=== PATIENT | male | born 1940 | race Caucasian/White ===

== ENCOUNTER 2017-04-17 23:23 | Emergency (ER) | payer MEDICARE ==
[2017-04-17 23:30] VITALS: BP 147/80; PULSE 58; RESP 18; TEMP 98
[2017-04-17] MEDS ORDERED: DIPH,PERTUS(ACELL)TETVAC-LF 0.5 ML VIAL IM ONE (23:36)
--- NOTE | 2017-04-17 23:42 | ED ---
General Adult HPI - General Chief complaint: Animal Bite Stated complaint: dog bite Time Seen by Provider: 04/17/17 23:32 Source: patient, family, RN notes reviewed Mode of arrival: ambulatory Limitations: no limitations - History of Present Illness Initial comments: Chief complaint history of present illness a 76-year-old male here with his . The patient owns dogs into the daughters got into a fight. He broke it up. He received a bite on the volar surface of his thumb which she refuses to get sutured. He also has a laceration measuring approximately 1/2 cm on the dorsal surface of his left hand. He will allow that to be sutured. Patient's x -rays full range of motion, no complaint of any numbness or tingling. The patient's to receive updated tetanus. - Related Data Home Medications Medication Instructions Recorded Confirmed Montelukast Sodium [Singulair] 10 mg PO DAILY 04/17/17 04/17/17 Simvastatin [Zocor] 20 mg PO DAILY 04/17/17 04/17/17 Previous Rx's Medication Instructions Recorded Amoxicillin/Potassium Clav 1 each PO Q12HR #16 tab 04/17/17 [Augmentin 875-125 Tablet] Allergies Allergy/AdvReac Type Severity Reaction Status Date / Time No Known Allergies Allergy Verified 04/17/17 23:30 Review of Systems ROS Statement: Those systems with pertinent positive or pertinent negative responses have been documented in the HPI. Review of systems patient has no other complaints other than the injuries caused by a dog bite to his right thumb and left hand. Past medical problems include having had surgery on his left eye, left shoulder. No known ALLERGIES. ROS Other: All systems not noted in ROS Statement are negative. Past Medical History Past Medical History: No Reported History History of Any Multi-Drug Resistant Organisms: None Reported Past Surgical History: Joint Replacement, Orthopedic Surgery Additional Past Surgical History / Comment(s): lt shoulder,lt eye Smoking Status: Never smoker Past Alcohol Use History: Occasional Past Drug Use History: None Reported General Exam - General Exam Comments Initial Comments: General: The patient is awake and alert, here for evaluation for dog bite to both hands. Also need a tetanus shot. Vital signs shows temperature 98.0 pulse 50 her story rate 18 pulse ox 97% room air blood pressure 147/80 Musculoskeletal: Normal range of motion to both hands and wrists elbows. He does have a 1 cm laceration on the volar surface of his right thumb which she will refuses to be sutured but it was cleaned. It will be dressed. He does have a laceration of the dorsal surface of his left hand which she will allow to be sutured. Neurological: No neuro deficits. Limitations: no limitations Course Vital Signs 04/17/17 23:27 Temperature 98.0 F Pulse Rate 58 L Respiratory 18 Rate Blood Pressure 147/80 O2 Sat by Pulse 97 Oximetry Medical Decision Making - Medical Decision Making Patient was advised they still need to fill out a dog bite form even though the dogs belong to them. They report the dogs immunizations are all up-to-date. Disposition Clinical Impression: Dog bite Disposition: HOME SELF-CARE Condition: Stable Instructions: Animal Bite (ED) Additional Instructions: Clean all wounds including abrasions daily. Take Augmentin 875 twice a day for 1 week. Sutures out in 8 days. Report any signs of infection. Prescriptions: Amoxicillin/Potassium Clav [Augmentin 875-125 Tablet] 1 each PO Q12HR #16 tab Referrals: Luis Daniel Tejada MD [Primary Care Provider] - 1-2 days Time of Disposition: 23:41
[2017-04-17] MEDS ORDERED: AMOXIC-POT CLAV 875MG STARTER 2 EACH TABLET PO STA (23:44)
== END 2017-04-18 00:11 | disposition home or self-care (01) ==
LOC: EC 23:23
DX: S61.412A Laceration without foreign body of left hand, initial encounter (principal); S61.051A Open bite of right thumb without damage to nail, initial encounter; Z79.899 Other long term (current) drug therapy; Z23 Encounter for immunization; W54.0XXA Bitten by dog, initial encounter; Y93.89 Activity, other specified
CPT/HCPCS: 12001; 90471; 90715; 99283

== ENCOUNTER → 2020-08-13 | Outpatient (CLI) | payer MEDICARE ==
--- NOTE | 2020-08-13 16:10 | US ---
EXAMINATION TYPE: US kidneys/renal and bladder DATE OF EXAM: 08/13/2020 COMPARISON: NONE CLINICAL HISTORY: N18.9 chronic kidney disease. EXAM MEASUREMENTS: Right Kidney: 9.3 x 3.7 x 4.2 cm Left Kidney: 10.6 x 5.3 x 4.5 cm Right Kidney: No hydronephrosis or masses seen Left Kidney: not well visualized, 2.6cm soft tissue density mass vs normal parenchyma Bladder: non-distended, possible slight wall thickening vs non-distended bladder There is no evidence for hydronephrosis at this point in time. No nephrolithiasis is seen. The urin danika bladder is anechoic. Bilateral ureteral jets are seen. IMPRESSION: Masslike fullness lower pole left kidney. Consider CT for further evaluation.
== END | disposition home or self-care (01) ==
LOC: RADUSWWP 15:32
PROVIDERS: ATTEND Internal Medicine
DX: N18.9 Chronic kidney disease, unspecified (principal)
CPT/HCPCS: 76770

== ENCOUNTER → 2020-08-22 | Outpatient (CLI) | payer MEDICARE ==
--- NOTE | 2020-08-24 16:50 | CT ---
EXAMINATION TYPE: CT urogram wo/w con DATE OF EXAM: 08/22/2020 COMPARISON: Ultrasound 08/13/2020 HISTORY: 79-year-old male Left renal mass. TECHNIQUE: Contiguous axial scanning of the abdomen and pelvis performed with IV Contrast, patient in jected with 80 mL of Isovue 300. Delayed images through the kidneys and bladder were obtained. Goss l/sagittal reconstructions performed. 3-D reconstructions generated on a dedicated independent workst atDasdak. CT DLP: 1072.3 mGycm Automated exposure control for dose reduction was used. FINDINGS: The heart is normal size without pericardial effusion. Mild dependent atelectasis at the visualized l tunde bases without pleural effusion. A couple subcentimeter hypodensities anterior left liver lobe too small for accurate CT characterizat ion, likely tiny cysts. Portal venous system is patent. No biliary ductal dilatation. Gallbladder, right adrenal gland, and spleen appear within normal limits. 2.2 cm nodule within the left adrenal gland is nonspecific. Noncontrast attenuation is not compatible with a lipid rich adrenal adenoma. Suspect a collapsed diverticulum of the third portion of the duodenum projecting superiorly into the pancreatic head region. Punctate calcification body of the pancreas is nonspecific. Otherwise, the pa ncreas shows no gross abnormality. No nephrolithiasis or hydronephrosis. No suspicious renal mass is identified. A subcentimeter, 7 mm h ypodensity lateral cortex of the right kidney is too small for acute CT catheterization, likely a tin y cyst. The left kidney is asymmetrically larger secondary to a duplex renal collecting system. Mild fullness of the left lower pole moiety but with symmetric uptake and excretion of contrast from both sides. N o suspicious filling defects within the renal collecting systems. The distal aspect of both ureters are nonopacified limiting their evaluation. 2 ureters are seen to t he mid ureteric level on the left. No dilated small bowel, free fluid, or free air. Overall paucity of intra-abdominal fat limits evalua tion for intra-abdominal lymphadenopathy. No obvious lymphadenopathy seen. Moderate stool burden. Assessment of pelvic structures is markedly limited due to extensive streak and beam hardening artifa ct relating to the patient's left hip total arthroplasty. Asymmetric soft tissue atrophy of the left psoas muscle. Bladder is inadequately assessed due to the extensive metal hardware artifacts. Tiny pelvic phlebolit hs. Prostate gland measures 5.1 cm wide. Some surgical material about the left hip. Bones: Left temporal arthroplasty. Surgical metal debris scattered within the left hip. Mild degenera tive change right hip. Advanced degenerative disc disease T11-L1. Hypertrophic facet arthropathy with trace grade 1 retrolisthesis T12-L1, L1-L2, and L2-L3. Trace grade 1 anterolisthesis L4-L5. There is a transitional lumbosacral segment with sacralized L5. Prominent disc bulging throughout the lumbar spine. IMPRESSION: 1. ASYMMETRICALLY LARGER LEFT KIDNEY SECONDARY TO A DUPLEX RENAL COLLECTING SYSTEM. THE QUESTIONED MA SS ON ULTRASOUND CORRESPONDS TO THE DUPLEX MORPHOLOGY OF THE KIDNEY. TWO URETERS ARE SEEN TO THE MID URETERIC LEVEL ON THE LEFT. 2. TINY 7 MM CORTICAL HYPODENSITY LATERAL MID POLE RIGHT KIDNEY TOO SMALL FOR ACCURATE CT CHARACTERIZ ATION, LIKELY TINY CYST. NO SUSPICIOUS RENAL LESION. 3. THE DISTAL URETERS ON BOTH SIDES ARE NONOPACIFIED LIMITING THEIR ASSESSMENT. ASSESSMENT OF THE PINO DDER IS ALSO MARKEDLY LIMITED DUE TO EXTENSIVE METAL ARTIFACT FROM THE PATIENT'S LEFT HIP REPLACEMENT . 4. A 2.2 CM LEFT ADRENAL NODULE DOES NOT MEET CRITERIA FOR A LIPID RICH ADRENAL ADENOMA. AN ADRENAL A DENOMA REMAINS THE STATISTICALLY MOST LIKELY CONSIDERATION. 6 MONTH FOLLOW-UP ADRENAL MASS PROTOCOL C Debby.
== END | disposition home or self-care (01) ==
LOC: RADCTMAIN 11:31
PROVIDERS: ATTEND Internal Medicine
DX: E27.8 Other specified disorders of adrenal gland (principal); N28.81 Hypertrophy of kidney; N28.89 Other specified disorders of kidney and ureter; Z96.642 Presence of left artificial hip joint
CPT/HCPCS: 82565; 84520; 74178; 36415; 74400; Q9967

== ENCOUNTER → 2020-10-09 | Outpatient (CLI) | payer MEDICARE ==
[2020-10-09 12:43] LABS: Creatinine,Urine Random 62.5 mg/dL; Protein/Creatinine Ratio,Urine 0.144
[2020-10-09 16:35] LABS: Appearance,Urine Clear (Clear); Bacteria,Urine None Seen /HPF (None Seen); Bilirubin,Urine Negative (Negative); Blood,Urine Negative (Negative); Color,Urine Yellow (Yellow); Glucose,Urine (UA) Negative (Negative); Ketones,Urine Negative (Negative); Leukocyte Esterase,Urine Negative (Negative); Nitrite,Urine Negative (Negative); PH, Urine 6.5 (4.5-8.0); Protein,Urine Negative (Negative); Specific Gravity,Urine 1.012 (1.001-1.030); Urobilinogen,Urine 0.2 E.U./DL (0.0-1.0)
[2020-10-09 20:17] LABS: Basophils # (A) 0.04 X 10*3/uL (0.00-0.10); Basophils % (A) 0.5 %; Eosinophils # (A) 0.12 X 10*3/uL (0.04-0.35); Eosinophils % (A) 1.6 %; HCT 39.7 % (39.6-50.0); HGB 12.7 g/dL (13.0-17.0); Lymphocytes # (A) 1.28 X 10*3/uL (0.90-5.00); Lymphocytes % (A) 17.2 %; MCH 28.4 pg (27.0-32.0); MCV 88.8 fL (80.0-97.0); Mean Platelet Volume 10.7 fL (9.5-12.2); Monocytes # (A) 0.66 X 10*3/uL (0.20-1.00); Monocytes % (A) 8.9 %; Neutrophils # (A) 5.33 X 10*3/uL (1.80-7.70); Neutrophils % (A) 71.5 %; Platelet Count 338 X 10*3/uL (140-440); RBC 4.47 X 10*6/uL (4.40-5.60); RDW 13.7 % (11.5-14.5); WBC 7.45 X 10*3/uL (4.50-10.00)
[2020-10-09 20:37] LABS: % Iron Saturation 32.12 (15.00-50.00); African American GFR (CKD) 44.1 (60.0-200.0); Albumin 4.5 g/dL (3.80-4.90); Anion Gap 8.6 mmol/L (4.00-12.00); BUN/Creat Ratio 15.29 Ratio (12.00-20.00); Calcium 9.5 mg/dL (8.7-10.3); Carbon Dioxide 28.4 mmol/L (21.6-31.8); Magnesium 2.1 mg/dL (1.5-2.4); Non-African American GFR(CKD) 38.1 (60.0-200.0); Phosphorus 3.3 mg/dL (2.4-5.1); Potassium 4.6 mmol/L (3.5-5.5); Uric Acid 6.7 mg/dL (3.7-8.7)
[2020-10-09 20:44] LABS: Ferritin 35.6 ng/mL (22.0-322.0)
== END | disposition home or self-care (01) ==
LOC: LABWHC1 11:46
PROVIDERS: ATTEND Internal Medicine Nephrology
DX: N18.32 Chronic kidney disease, stage 3b (principal); E55.9 Vitamin D deficiency, unspecified; N25.81 Secondary hyperparathyroidism of renal origin; M10.9 Gout, unspecified; N39.0 Urinary tract infection, site not specified; D64.9 Anemia, unspecified; R80.9 Proteinuria, unspecified
CPT/HCPCS: 36415; 80048; 81003; 82040; 82306; 82570; 82728; 83540; 83550; 83735; 83970; 84100; 84156; 84550; 85025

== ENCOUNTER → 2021-05-07 | Outpatient (CLI) | payer MEDICARE ==
[2021-05-07 14:06] LABS: Appearance,Urine Clear (Clear); Bilirubin,Urine Negative (Negative); Blood,Urine Negative (Negative); Color,Urine Yellow; Glucose,Urine (UA) Negative (Negative); Ketones,Urine Negative (Negative); Leukocyte Esterase,Urine Negative (Negative); Nitrite,Urine Negative (Negative); PH, Urine 6.5 (5.0-8.0); Protein,Urine Negative (Negative); Specific Gravity,Urine 1.014 (1.001-1.035); Urobilinogen,Urine <2.0 mg/dL (<2.0)
[2021-05-07 14:30] LABS: Creatinine,Urine Random 81.6 mg/dL; Protein/Creatinine Ratio,Urine 0.098
[2021-05-07 20:04] LABS: Basophils # (A) 0.04 X 10*3/uL (0.00-0.10); Basophils % (A) 0.7 %; Eosinophils # (A) 0.13 X 10*3/uL (0.04-0.35); Eosinophils % (A) 2.3 %; HCT 38.4 % (39.6-50.0); HGB 12.6 g/dL (13.0-17.0); Lymphocytes # (A) 1.54 X 10*3/uL (0.90-5.00); Lymphocytes % (A) 27.1 %; MCH 29.2 pg (27.0-32.0); MCHC 32.8 g/dL (32.0-37.0); MCV 88.9 fL (80.0-97.0); Mean Platelet Volume 10.9 fL (9.5-12.2); Monocytes # (A) 0.46 X 10*3/uL (0.20-1.00); Monocytes % (A) 8.1 %; Neutrophils # (A) 3.49 X 10*3/uL (1.80-7.70); Neutrophils % (A) 61.4 %; Platelet Count 291 X 10*3/uL (140-440); RBC 4.32 X 10*6/uL (4.40-5.60); RDW 14.1 % (11.5-14.5); WBC 5.68 X 10*3/uL (4.50-10.00)
[2021-05-08 09:58] LABS: % Iron Saturation 41.24 (15.00-50.00); African American GFR (CKD) 50.9 (60.0-200.0); Albumin 4.2 g/dL (3.80-4.90); Anion Gap 10.5 mmol/L (4.00-12.00); BUN/Creat Ratio 22.67 Ratio (12.00-20.00); Calcium 8.9 mg/dL (8.7-10.3); Carbon Dioxide 23.5 mmol/L (21.6-31.8); Phosphorus 3.2 mg/dL (2.4-5.1); Potassium 4.6 mmol/L (3.5-5.5); Uric Acid 6.7 mg/dL (3.7-8.7)
[2021-05-08 10:07] LABS: Ferritin 53.5 ng/mL (22.0-322.0)
== END | disposition home or self-care (01) ==
LOC: LABWHC1 12:57
PROVIDERS: ATTEND Nurse Practitioner Family
DX: N18.32 Chronic kidney disease, stage 3b (principal); E55.9 Vitamin D deficiency, unspecified; N25.81 Secondary hyperparathyroidism of renal origin; M10.9 Gout, unspecified; N39.0 Urinary tract infection, site not specified; D64.9 Anemia, unspecified; R80.9 Proteinuria, unspecified
CPT/HCPCS: 36415; 80048; 81003; 82040; 82306; 82570; 82728; 83540; 83550; 83735; 83970; 84100; 84156; 84550; 85025

== ENCOUNTER → 2021-06-04 | Outpatient (CLI) | payer MEDICARE ==
--- NOTE | 2021-06-04 13:18 | CT ---
EXAMINATION TYPE: CT abdomen wo con DATE OF EXAM: 06/04/2021 COMPARISON: CT 08/22/2020 HISTORY: adrenal adenoma CT DLP: 171.1 mGycm Automated exposure control for dose reduction was used. TECHNIQUE: Helical acquisition of images was performed from the lung bases through the top of iliac crest to include entire abdomen. CONTRAST: Performed with Oral Contrast and without IV contrast. FINDINGS: Lack of intravenous contrast could compromise sensitivity LUNG BASES: No significant abnormality is appreciated. LIVER/GB: No significant abnormality is appreciated. PANCREAS: No significant abnormality is seen. SPLEEN: No significant abnormality is seen. ADRENALS: No significant interval change is seen,e Hounsfield unit measurements of the left adrenal m ass are approximately 8-9, low densities in keeping with patient's history of adenoma. KIDNEYS: No significant abnormality is seen. BOWEL: No significant abnormality is seen. LYMPH NODES: No significant abnormality is appreciated. OSSEOUS STRUCTURES: Degenerative disc changes are present in the visualized spine, there is a spinal curvature, some associated facet arthropathy. FREE AIR: No Free Air visible ASCITES: None visible. RETROPERITONEAL ADENOPATHY: No Retroperitoneal Adenopathy visible. OTHER: Aorta shows atheromatous change. IMPRESSION: FINDINGS CONSISTENT WITH PATIENT'S HISTORY
== END | disposition home or self-care (01) ==
LOC: RADCTMAIN 10:51
PROVIDERS: ATTEND Internal Medicine Nephrology
DX: D35.02 Benign neoplasm of left adrenal gland (principal)
CPT/HCPCS: 74150

== ENCOUNTER → 2021-10-13 | Outpatient (CLI) | payer MEDICARE ==
--- NOTE | 2021-10-13 09:40 | US ---
EXAMINATION TYPE: US carotid duplex BILAT DATE OF EXAM: 10/13/2021 COMPARISON: NONE CLINICAL HISTORY: I34.0 mitral insufficiency nonrheumatic. EXAM MEASUREMENTS: RIGHT: Peak Systolic Velocity (PSV) cm/sec ----- Right CCA: 88.5 ----- Right ICA: 92.7 ----- Right ECA: 58.3 ICA/CCA ratio: 1.05 RIGHT: End Diastole cm/sec ----- Right CCA: 30.9 ----- Right ICA: 32.1 ----- Right ECA: 7.99 LEFT: Peak Systolic Velocity (PSV) cm/sec ----- Left CCA: 106 ----- Left ICA: 32.7 ----- Left ECA: 87.9 ICA/CCA ratio: 0.91 LEFT: End Diastole cm/sec ----- Left CCA: 26.7 ----- Left ICA: 32.7 ----- Left ECA: 15.4 VERTEBRALS (direction of flow): Right Vertebral: Antegrade Left Vertebral: Antegrade Rhythm: Arrhythmia No elevated velocities IMPRESSION: 1. Atheromatous plaquing including calcified plaque and intimal wall thickening diffusely without sig nificant flow-limiting stenosis by velocity measurement. Criteria for Assigning % of Stenosis / Diameter reduction (Estimation based on the indirect measurements of the internal carotid artery velocities (ICA PSV). 1. Normal (no stenosis)=ICA PSV < 125 cm/s: ratio < 2.0: ICA EDV<40 cm/s. 2. Less than 50% stenosis=ICA PSV < 125 cm/s: ratio < 2.0: ICA EDV<40 cm/s. 3. 50 to 69% stenosis=ICA PSV of 125 to 230 cm/s: ration 2.0 ? 4.0: ICA EDV 40-100 cm/s. 4. Greater than 70% stenosis to near occlusion= ICA PSV > 230 cm/s: ratio > 4.0: ICA EDV > 100 cm/s. 5. Near occlusion= ICA PSV velocities may be low or undetectable: variable ratio and ICA EDV. 6. Total occlusion=unable to detect flow.
--- NOTE | 2021-10-13 09:59 | CT ---
EXAMINATION TYPE: CT heart w calcium score DATE OF EXAM: 10/13/2021 COMPARISON: HISTORY: Screening for cardiovascular disorder. 213.9 CT DLP: 67.2 mGycm Automated exposure control for dose reduction was used. CT CALCIUM SCORING Coronary calcium is a marker for plaque (fatty deposits) in a blood vessel or atherosclerosis (harden ing of the arteries). The presence and amount of calcium detected in a coronary artery by the CT sca n, indicates the presence and amount of atherosclerotic plaque. These calcium deposits appear years before the development of heart disease symptoms such as chest pain and shortness of breath. A calcium score is computed for each of the coronary arteries based upon the volume and density of th e calcium deposits. This can be referred to as your calcified plaque burden. It does not correspond directly to the percentage of narrowing in the artery but does correlate with the severity of the un derlying coronary atherosclerosis. PROCEDURE TECHNIQUE - Prospective Gating was used. Slice thickness: 3mm. Density threshold (HU): 130, Pixel threshold: 3, Algorithm: discrete. RESULTS Region: LM Calcium Score (Agatston): 0 Volume (mm3): 0 Mass (g): 0 Region: RCA Calcium Score (Agatston): 0 Volume (mm3): 0 Mass (g): 0 Region: LAD Calcium Score (Agatston): 509.43 Volume (mm3): 421.27 Mass (g): 140.42 Region: CX Calcium Score (Agatston): 129.56 Volume (mm3): 114.84 Mass (g): 38.28 Region: PDA Calcium Score (Agatston): 181.83 Volume (mm3): 51.72 Mass (g): 155.15 Total: Calcium Score (Agatston): 820.82 Volume (mm3): 691.26 Mass (g): 230.42 TOTAL CALCIUM SCORE: 820.82 Atherosclerotic change of the coronary arteries and aorta. Maximal dimension of the aorta measures 4. 1 cm compatible with mild aneurysmal dilation IMPRESSION: 1. Coronary artery atherosclerotic disease. 2. 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 Calcium Score: 820.82 Implication: Extensive atherosclerotic plaque Risk of Coronary Artery Disease: High likelihood of at least one significant coronary artery narrowin g. Correlate clinically. CALCIUM SCORE IMPLICATION RISK OF C ORONARY ARTERY DISEASE 0 No identifiable plaque Very low, generally less than 5% 1-10 Minimal identifiable plaque Very unlikely, less than 10% 11-100 Definite, at least mild atherosclerotic plaque Mild or m inimal coronary narrowings likely 101-400 Definite, at least moderate atherosclerotic plaque Mild coronary ar shannon disease highly likely, significant narrowing possible 401 or Higher Extensive atherosclerotic plaque High lik elihood of at least one significant coronary narrowing
--- NOTE | 2021-10-13 11:55 | ECHOF ---
Referral Reason:I34.0 MEASUREMENTS -------- HEIGHT: 175.3 cm WEIGHT: 72.6 kg BP: RVIDd: 3.7 cm (< 3.3) IVSd: 1.3 cm (0.6 - 1.1) LVIDd: 4.8 cm (3.9 - 5.3) LVPWd: 1.4 cm (0.6 - 1.1) IVSs: 2.0 cm LVIDs: 2.3 cm LVPWs: 2.3 cm LAESV Index (A-L): 34.60 ml/m Ao Diam: 3.2 cm (2.0 - 3.7) AV Cusp: 2.0 cm (1.5 - 2.6) LA Diam: 3.0 cm (2.7 - 3.8) MV EXCURSION: 20.130 mm (> 18.000) MV EF SLOPE: 99 mm/s (70 - 150) EPSS: 0.8 cm MV E Nash: 0.59 m/s MV DecT: 370 ms MV A Nash: 0.84 m/s MV E/A Ratio: 0.71 RAP: 5.00 mmHg RVSP: 32.40 mmHg FINDINGS -------- Sinus rhythm with extra systolic beats. This was a technically adequate study. The left ventricular size is normal. There is mild concentric left ventricular hypertrophy. Overa ll left ventricular systolic function is normal with, an EF between 55 - 60 %. The right ventricle is mildly enlarged. LA is moderately dilated 34-39 ml/m2 The right atrial size is normal. Interatrial and interventricular septum intact. Aortic valve is trileaflet and is mildly thickened. There is mild aortic regurgitation. There is no evidence of aortic stenosis. Moderate mitral annular calcification present. [id number] mitral regurgitation is present. The tricuspid valve appears structurally normal. Mild tricuspid regurgitation present. Right vent ricular systolic pressure is normal at < 35 mmHg. The right ventricular systolic pressure, as measu red by Doppler, is 32.40mmHg. There is no pulmonic regurgitation present. The aortic root size is normal. The inferior vena cava is mildly dilated. There is no pericardial effusion. CONCLUSIONS -------- 1. There is mild concentric left ventricular hypertrophy. 2. Overall left ventricular systolic function is normal with, an EF between 55 - 60 %. 3. The right ventricle is mildly enlarged. 4. LA is moderately dilated 34-39 ml/m2 5. There is mild aortic regurgitation. 6. Dslp-so-tbycxbwo mitral regurgitation is present. 7. Mild tricuspid regurgitation present. 8. The inferior vena cava is mildly dilated. 9. There is no pericardial effusion. MANAGER [employer]OPMENT: Radha Youssef RDCS
== END | disposition home or self-care (01) ==
LOC: RADUSWWP 08:01
PROVIDERS: ATTEND Internal Medicine
DX: I34.0 Nonrheumatic mitral (valve) insufficiency (principal); I65.23 Occlusion and stenosis of bilateral carotid arteries; I25.10 Atherosclerotic heart disease of native coronary artery without angina pectoris; I71.2 Thoracic aortic aneurysm, without rupture; Z82.49 Family history of ischemic heart disease and other diseases of the circulatory system
CPT/HCPCS: 75571; 93306; 93880

== ENCOUNTER → 2021-12-22 | Outpatient (CLI) | payer MEDICARE ==
--- NOTE | 2021-12-22 21:29 | US ---
EXAMINATION TYPE: US kidneys/renal and bladder DATE OF EXAM: 12/22/2021 COMPARISON: CT abdomen June 04, 2021 CLINICAL HISTORY: N18.32 CKD STAGE 3. CKD stage 3 EXAM MEASUREMENTS: Right Kidney: 8.0 x 3.8 x 3.8 cm Left Kidney: 13.0 x 5.2 x 3.8 cm Right Kidney: Small . No hydronephrosis or masses seen. Left Kidney: No hydronephrosis or masses seen Bladder: anechoic Bilateral Jets seen: right only Right kidney is thought falsely measured diminished in size from recent CT. Asymmetric enlargement of left kidney on this study. No hydronephrosis or concerning masses bilaterally. The urinary bladder i s not greatly distended. Bilateral distal ureteric jets are not seen. IMPRESSION: No hydronephrosis seen bilaterally. Possible interval right-sided volume loss. Consider f urther workup with contrast-enhanced CT or MRI or nuclear medicine function study to assess for clini gael significant diminished right renal function.
== END | disposition home or self-care (01) ==
LOC: RADUSWWP 15:43
PROVIDERS: ATTEND Internal Medicine Nephrology
DX: N18.32 Chronic kidney disease, stage 3b (principal)
CPT/HCPCS: 76770

== ENCOUNTER → 2022-02-06 | Outpatient (CLI) | payer MEDICARE ==
--- NOTE | 2022-02-06 12:05 | MR ---
MR abdomen without contrast HISTORY: D35.02 BENIGN NEOPLASM OF LEFT ADRENAL GLAND multiplanar multisequence imaging through the abdomen Correlation CT abdomen 06/04/2021, CT urogram 08/22/2020 2 mild prominence the left adrenal gland shows a stable appearance. No significant change in out of p hase imaging within the region of interest involving the left adrenal gland. Fat planes are maintaine d. Right adrenal gland is normal. There is no retroperitoneal adenopathy. Aorta shows normal caliber. No ascites. Small cortical, stabl e, no hydronephrosis bilaterally. Spleen is not enlarged, subcentimeter cystic focus is stable inferi yong. Lung bases show no effusion. Liver shows a cystic focus within the left lobe, stable. No dilate d ducts. Gallbladder shows no stone. Some scattered cystic foci present within the pancreas which are subcentimeter in size. There is no evident bowel obstruction. Degenerative disc change, facet arthro nahum noted in the lumbar spine. IMPRESSION: Stable findings left adrenal gland, findings likely benign. Cystic foci within the pancre as felt likely to be benign, follow-up could be performed to assess for stability. Additional cystic foci noted as described
== END | disposition home or self-care (01) ==
LOC: RADMRIMAIN 08:34
PROVIDERS: ATTEND Internal Medicine
DX: D35.02 Benign neoplasm of left adrenal gland (principal)
CPT/HCPCS: 74181

== ENCOUNTER → 2023-07-13 | Outpatient (CLI) | payer MEDICARE, BC ==
--- NOTE | 2023-07-16 14:17 | SLS ---
SLEEP STUDY This is a home sleep study. HISTORY OF PRESENT ILLNESS: This patient is 82 years old and the patient is undergoing a home sleep study for evaluation of sleep apnea. The patient suffers from chronic fatigue and limited sleepiness and has an Twining score of 2. He has reported snoring. No clear indication for underlying nocturnal apneas based on history. He is known to have multiple comorbidities including hypertension, hyperlipidemia, BPH, and dev nasal septum. PERTINENT PHYSICAL FINDINGS: Height is 5 feet and 9 inches, weight is 163 pounds, and BMI is 25.1. TECHNICAL DESCRIPTION: The [employer] System was used to complete this home sleep study. This is a type 3 home sleep study. Total recording duration was 8 hours and 17 minutes. The study started at 11:36 p.m. and ended at 07:45 a.m. This was an adequate study as the patient has more than 7 hours of flow and oxygen saturation monitoring. RESULTS: Respiratory count showed a total of 6 obstructive apneas and 41 obstructive hypopneas. The resulting AHI was 5.9. OXYGENATION ANALYSIS: The baseline pulse ox was 95%. Average pulse ox during sleep was 93%. Minimum pulse ox was 76% and the patient spent only 29 minutes of sleep time at the pulse ox of 88% and below. CARDIAC SUMMARY: Average heart rate was 52, minimum heart rate of 40, maximum heart rate was 90. IMPRESSION: 1. Snoring with a very mild component of obstructive sleep apnea with an AHI of 5.9. 2. Mild nocturnal oxygen desaturation. 3. Chronic fatigue, not related to sleep apnea. 4. No major hypersomnia or sleepiness. 5. Hypertension. 6. Hyperlipidemia. 7. Benign prostatic hypertrophy. PLAN: This is a case of very mild sleep apnea. The patient demonstrated few obstructive hypopneas throughout the night with some mild nocturnal oxygen desaturations. I do not see the need for CPAP therapy at this point in time. I encourage weight loss, optimize sleep hygiene measures, sleep on the side with the head of the bed elevated at 20 degrees at all times, and the patient will see me back in followup if needed in the future. Otherwise, this is a very mild case and it needs to be treated conservatively. No need for CPAP therapy at this point in time. MMODL / IJN: [id number] / GERARDO
== END ==
LOC: 3 N SLEEP 16:42
PROVIDERS: ATTEND Internal Medicine Critical Care Medicine
DX: G47.33 Obstructive sleep apnea (adult) (pediatric) (principal); G47.36 Sleep related hypoventilation in conditions classified elsewhere; I10 Essential (primary) hypertension; E78.5 Hyperlipidemia, unspecified; R53.82 Chronic fatigue, unspecified; N40.0 Benign prostatic hyperplasia without lower urinary tract symptoms

== ENCOUNTER → 2023-08-13 | Outpatient (CLI) | payer MEDICARE, BC ==
--- NOTE | 2023-08-14 11:08 | US ---
EXAMINATION TYPE: US kidneys/renal and bladder DATE OF EXAM: 08/13/2023 COMPARISON: MRI 02/06/2022 US 12/22/2021 CLINICAL INDICATION: Male, 82 years old with history of N28.9 DISORDER OF KIDNEY AND URETER, UNSPECIF IED; Patient denies any signs or symptoms at this time EXAM MEASUREMENTS: Right Kidney: 10.2 x 4.3 x 4.5 Left Kidney: 12.0 x 5.4 x 5.3 Post Void Residual Volume: 19mL Right Kidney: No hydronephrosis or masses seen Left Kidney: No hydronephrosis or masses seen Bladder: Anechoic with median lobe hypertrophy changes of the prostate gland. Bilateral Jets seen: Yes Normal Post Void Residual: Yes There is no evidence for hydronephrosis at this point in time. No nephrolithiasis is seen. No sonya s are identified. The urinary bladder is anechoic. Bilateral ureteral jets are seen. IMPRESSION: No evidence for obstructive uropathy. Median lobe hypertrophy changes of the prostate gland.
== END | disposition home or self-care (01) ==
LOC: RADUSWWP 15:04
PROVIDERS: ATTEND Internal Medicine
DX: N28.9 Disorder of kidney and ureter, unspecified (principal); N40.0 Benign prostatic hyperplasia without lower urinary tract symptoms
CPT/HCPCS: 76770

== ENCOUNTER → 2024-03-16 | Outpatient (CLI) | payer MEDICARE ==
--- NOTE | 2024-03-16 15:03 | NM ---
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 Images acq uired 3.5 hours post injection. FINDINGS: No abnormal uptake is identified within the appendicular or axial skeleton to suggest metastatic dise ase. There is increased uptake within the bilateral shoulder, sternoclavicular, and sacroiliac joints con sistent with degenerative changes. Additional uptake demonstrated throughout the lumbar spine most pr onounced at L5-S1 bilateral facets related to degenerative disease. No other photopenic areas or area s of increased activity are identified. Physiologic radiotracer activity is demonstrated in the kidneys and bladder. IMPRESSION: Uptake most consistent with degenerative disease most pronounced at the L5-S1 bilateral facet joints.
== END | disposition home or self-care (01) ==
LOC: RADNMMAIN 10:51
PROVIDERS: ATTEND Physical Medicine & Rehabilitation
DX: M47.814 Spondylosis without myelopathy or radiculopathy, thoracic region (principal); M47.817 Spondylosis without myelopathy or radiculopathy, lumbosacral region; M41.86 Other forms of scoliosis, lumbar region; S22.040A Wedge compression fracture of fourth thoracic vertebra, initial encounter for closed fracture; S22.050A Wedge compression fracture of T5-T6 vertebra, initial encounter for closed fracture; M41.24 Other idiopathic scoliosis, thoracic region; M48.062 Spinal stenosis, lumbar region with neurogenic claudication; M16.11 Unilateral primary osteoarthritis, right hip; S32.030A Wedge compression fracture of third lumbar vertebra, initial encounter for closed fracture; M51.16 Intervertebral disc disorders with radiculopathy, lumbar region; M51.17 Intervertebral disc disorders with radiculopathy, lumbosacral region
CPT/HCPCS: 78306; A9503

== ENCOUNTER → 2024-11-10 | Outpatient (CLI) | payer MEDICARE ==
--- NOTE | 2024-11-10 11:17 | US ---
EXAMINATION TYPE: US kidneys/renal and bladder DATE OF EXAM: 11/10/2024 COMPARISON: US 2022 CLINICAL INDICATION: Male, 83 years old with history of N28.9 DISORDER OF KIDNEY AND URETER, UNSPECIF IED; TECHNIQUE: Grayscale imaging of the bilateral kidneys and urinary bladder: FINDINGS: EXAM MEASUREMENTS: Right Kidney: 9.0 x 3.7 x 4.4 cm Left Kidney: 11.2 x 5.1 x 4.2 cm Post Void Residual Volume: 58.3 mL Right Kidney: small in size when compared to left kidney, increased echogenicity, lobular contour Left Kidney: limited by overlying bowel gas and rib shadowing, increased echogenicity, lobular contou r Bladder: wnl Bilateral Jets seen: no Normal Post Void Residual: no There is no evidence for hydronephrosis at this point in time. No nephrolithiasis is seen. No sonya s are identified. The urinary bladder is anechoic. IMPRESSION: 1. No evidence for hydronephrosis. 2. Medical renal disease with atrophic kidneys. 3. 58.3 mL postvoid residual. [facility], , 11/10/2024 11:15 AM
== END | disposition home or self-care (01) ==
LOC: RADUSWWP 10:35
PROVIDERS: ATTEND Internal Medicine
DX: N18.9 Chronic kidney disease, unspecified (principal); R39.198 Other difficulties with micturition; N26.1 Atrophy of kidney (terminal); N28.89 Other specified disorders of kidney and ureter
CPT/HCPCS: 76770